=== PATIENT | female | born 1990 ===

== ENCOUNTER 2020-02-05 08:27 | Outpatient (CLI) | payer OTHER ==
[2020-02-06 14:05] LABS: SARS-CoV-2 MS2 Positive; SARS-CoV-2 N Gene Negative; SARS-CoV-2 S Gene Negative; SARS-CoV-2 by NAA Not Detected (NotDetected); SARS-CoV-2 orf1ab Negative
== END 2020-02-05 08:28 | disposition home or self-care (01) ==
LOC: LABSCS 08:27
PROVIDERS: ATTEND Obstetrics & Gynecology
DX: Z20.828 Contact with and (suspected) exposure to other viral communicable diseases (principal)
CPT/HCPCS: 87635; U0003

== ENCOUNTER 2020-02-08 05:51 | Inpatient (IN) | payer OTHER ==
[2020-02-08] MEDS ORDERED: CEFAZOLIN 2 GM in Premix Bag 1 BAG IVPB SCH (06:12)
[2020-02-08] MEDS ORDERED: Ondansetron PF 4 MG/2 ML Vial IVP PRN ×2 (06:12→08:37)
[2020-02-08] MEDS ORDERED: Bicitra 30 ML UDCUP PO SCH (06:12)
[2020-02-08] MEDS ORDERED: hydrALAZINE 20 MG/ML VIAL SLOW IVP PRN ×2 (06:12→08:28)
[2020-02-08] MEDS ORDERED: Promethazine HCl 25 MG/ML VIAL IM PRN ×2 (06:12→08:37)
[2020-02-08 06:21] VITALS: BMI 35.7
[2020-02-08 06:33] LABS: Hemoglobin 11.7 g/dL (12.0-16.0); Mean Corpuscular HGB CONC 33.7 g/dL (32.0-36.0); Mean Corpuscular Hemoglobin 30.6 pg (27.0-31.0); Mean Corpuscular Volume 90.7 fL (78.0-98.0); Mean Platelet Volume 10.2 fL (7.4-10.4); Platelet Count 148 thou/uL (130-400); RBC Distribution Width 15.7 % (11.5-14.5); Red Blood Cell (RBC) Count 3.81 mill/uL (4.20-5.40); White Blood Cell (WBC) Count 8.3 thou/uL (4.8-10.8)
[2020-02-08] MEDS ORDERED: Fentanyl 100 MCG/2 ML VIAL ONE (07:11)
[2020-02-08] MEDS ORDERED: MORPHINE 5 MG/10 ML PF VIAL ONE (07:11)
[2020-02-08 07:12] LABS: Syphilis Antibody Nonreactive (Nonreactive); Syphilis Antibody Index 0.04 S/CO (<1.00 Non-Reactive)
[2020-02-08] MEDS ORDERED: Ketorolac Tromethamine 30 MG/ML VIAL ONE (07:12)
[2020-02-08] MEDS ORDERED: EPHEDRINE 25 MG/5 ML SYRINGE ONE (07:12)
[2020-02-08] MEDS ORDERED: Dexamethasone 4 mg/ml Vial ONE (07:12)
[2020-02-08] MEDS ORDERED: PHENYLEPHRINE-NS 100 MCG/ML 10 ML SYRINGE ONE (07:12)
[2020-02-08] MEDS ORDERED: Ondansetron PF 4 MG/2 ML Vial ONE (07:12)
[2020-02-08] MEDS ORDERED: Oxytocin 10 UNITS/ML VIAL ONE ×3 (07:12→07:13)
--- NOTE | 2020-02-08 08:27 | PDOC.OPDEL ---
OB Operative/Delivery Note Delivery Dr/Surgeon: Javed Assist: Luca Pre-Delivery Diagnosis: scheduled section Procedure/Post Delivery Dx: repeat low transverse CS Weeks gestation: 39 Anesthesia: spinal - Findings A Sex: female Weight: 7 lb 14 oz - 1 min: 8 - 5 min: 9 - Additional Findings/Plan Placenta delivered: manual removal findings: low transverse hysterotomy without extension Estimated blood loss: 1000ml
[2020-02-08] MEDS ORDERED: Acetaminophen 325 MG TAB PO PRN (08:28)
[2020-02-08] MEDS ORDERED: Simethicone Chewable 80 MG TAB PO PRN (08:28)
[2020-02-08] MEDS ORDERED: diphenhydrAMINE 25 MG CAP PO PRN (08:28)
[2020-02-08] MEDS ORDERED: Lanolin Ointment 7 GM TUBE TOP PRN (08:28)
[2020-02-08] MEDS ORDERED: Ketorolac Tromethamine 30 MG/ML VIAL IVP PRN (08:37)
[2020-02-08] MEDS ORDERED: Naloxone HCl 0.4 mg/ml Vial IVP PRN ×2 (08:37)
[2020-02-08] MEDS ORDERED: Naloxone HCl 0.4 mg/ml Vial IV PRN (08:37)
[2020-02-08] MEDS ORDERED: Ondansetron HCl/PF 4 MG/2 ML Vial IVP PRN (08:37)
[2020-02-08] MEDS ORDERED: Promethazine HCl 25 MG SUPP PR PRN (08:37)
[2020-02-08] MEDS ORDERED: diphenhydrAMINE 50 MG/ML VIAL IVP PRN (08:37)
[2020-02-08] MEDS ORDERED: L&D-Morphine 4 MG/ML VIAL SLOW IVP PRN (08:37)
[2020-02-08] MEDS ORDERED: HYDROmorphone 2 MG/ML VIAL SLOW IVP PRN (08:37)
[2020-02-08] MEDS: Lactated Ringer's 1,000 ML IV SCH (08:42)
[2020-02-08] MEDS ORDERED: Communication Order-Pharmacy FS SCH (08:45)
[2020-02-08] MEDS ORDERED: Meperidine HCl/PF 25 MG/ML VIAL ONE ×2 (09:48→10:11)
[2020-02-08] MEDS: Meperidine HCl/PF 25 MG/ML VIAL SLOW IVP PRN ×2 (09:50→10:16)
[2020-02-08 11:26] LABS: Hep B Surf Ag Non-Reactive S/CO (NonReactive)
--- NOTE | 2020-02-08 11:55 | OP ---
DATE OF PROCEDURE: 02/08/2020 PREOPERATIVE DIAGNOSES: 1. A 29-year-old [place] female, G2, P1, prior section at 39 weeks. 2. Desires repeat section. POSTOPERATIVE DIAGNOSES: 1. A 29-year-old [place] female, G2, P1, prior section at 39 weeks. 2. Desires repeat section. PROCEDURE PERFORMED: Repeat low-transverse section without extension. ASSISTANCE SURGEON: Rj Segovia DO, MS ANESTHESIA: Spinal block. QUANTITATIVE BLOOD LOSS: 560 mL. FINDINGS: 1. Vigorous female , Apgars 8 and 9, 7 pounds and 14 ounces. Vertex presentation. 2. Clear amniotic fluid noted. 3. Some peritoneal adhesion in the upper mid anterior uterine wall, status post adhesiolysis. 4. Clear urine present in Self catheter postprocedure. DISPOSITION: To recovery room, stable. DESCRIPTION OF PROCEDURE: The patient previously received informed consent in regard to surgery. She was taken to the operating room, where she received spinal block without complications. She was then placed in the supine position and Self catheter and SCDs were placed. She was then prepped in usual sterile fashion. A Pfannenstiel incision was made through the previous scar site, which was carried down the fascia. Fascia was nicked in midline. Fascial incision was extended bilaterally using curved Flores scissors. Rectus fascia was then dissected superiorly and inferiorly off the rectus muscle bellies. There was some peritoneal band-like adhesions in the mid upper anterior uterus, which were taken down with Bovie cautery to give us more room and mobility of the uterus. Hysterotomy incision was then made in the lower uterine segment above the vesicouterine peritoneal fold. This extended via finger fractionation. The baby was delivered in the vertex presentation. The mouth and nares of the were bulb suctioned on the abdomen. The cord was doubly clamped and cut and handed to the pediatric team in attendance. The usual cord blood was obtained. The placenta was manually extracted. Hysterotomy incision was grasped with ring forceps and the uterus was externalized. The uterus was curetted of any remaining placental fragments with dry laparotomy sponge. The uterus returned back to the abdomen. The hysterotomy incision was closed in double-layer with #1 Monocryl in running locking fashion. Hemostasis was confirmed. The pelvis was irrigated and suctioned. Again, the hysterotomy was confirmed to be hemostatic. The rectus muscle bellies were inspected and noted to be hemostatic prior to fascial closure. The fascia was closed with 0 PDS suture x2 in a running continuous fashion. Subcutaneous tissue was irrigated and hemostatic prior to approximation with running 3-0 plain gut. The skin was closed with jenae. Surgery was terminated. No anesthetic or surgical complications occurred. Job ID: [id number]
[2020-02-08] MEDS: Docusate Calcium (SURFAK) 240 MG CAP PO SCH ×2 (13:07→21:30)
[2020-02-08] MEDS: Ferrous Sulfate 325 MG TAB PO SCH ×2 (13:08→21:32)
[2020-02-08] MEDS: Prenatal Vitamin 1 TAB PO SCH (13:08)
[2020-02-08] MEDS: Ibuprofen 800 MG TAB PO SCH ×2 (13:12→21:30)
[2020-02-08] MEDS: HYDROcodone/Acetaminophen 5/325 mg Tablet PO PRN (20:25)
[2020-02-08 20:46] LABS: HBSAg Index 0.13 S/CO (0-0.99)
[2020-02-09] MEDS: Lactated Ringer's 1,000 ML IV SCH ×5 (02:00→22:05)
[2020-02-09] MEDS ORDERED: Sodium Chloride 0.9% 10 ML ONE (05:59)
[2020-02-09] MEDS: Ibuprofen 800 MG TAB PO SCH ×3 (06:07→21:16)
[2020-02-09 06:17] LABS: Hemoglobin 8.9 g/dL (12.0-16.0); Mean Corpuscular Hemoglobin 30.1 pg (27.0-31.0); Mean Corpuscular Volume 91.3 fL (78.0-98.0); Mean Platelet Volume 10.1 fL (7.4-10.4); Platelet Count 131 thou/uL (130-400); RBC Distribution Width 15.4 % (11.5-14.5); Red Blood Cell (RBC) Count 2.94 mill/uL (4.20-5.40); White Blood Cell (WBC) Count 10.5 thou/uL (4.8-10.8)
--- NOTE | 2020-02-09 08:09 | PDOC.PP ---
Post Progress Note Post Day #: 1 Subjective: Patient doing well. Would like to go home later today if doing well. Has good help at home. PO intake tolerated: yes Flatus: yes Ambulation: yes Vital Signs (12 hours) Temp Pulse Resp BP Pulse Ox 02/09/20 00:25 98 F 72 16 99/55 L 98 02/08/20 20:10 98.0 F 80 20 116/59 L 98 Weight Weight 202 lb - Physical Examination Abdominal: + bowel sounds, no distention, appropriately TTP Extremities: negative homans (B) Result Diagrams: 02/09/20 05:52 Additional Labs: Post Labs Blood Type A POSITIVE 02/08/20 06:25 Hep Bs Antigen Non-Reactive S/CO (NonReactive) 02/08/20 06:25 - Assessment/Plan post op day 1 from repeat c/s. Hemodynamically stable. Increase activity and advance diet. Anticipate discharge later today if doing well.
[2020-02-09] MEDS ORDERED: Adacel (T-DAP) 0.5 ML SYRINGE IM ONE (08:28)
[2020-02-09] MEDS: HYDROcodone/Acetaminophen 5/325 mg Tablet PO PRN ×4 (08:44→22:26)
[2020-02-09] MEDS: Ferrous Sulfate 325 MG TAB PO SCH ×2 (08:44→21:17)
[2020-02-09] MEDS: Docusate Calcium (SURFAK) 240 MG CAP PO SCH ×2 (08:44→21:17)
[2020-02-09] MEDS: Prenatal Vitamin 1 TAB PO SCH (08:44)
[2020-02-10] MEDS: Ibuprofen 800 MG TAB PO SCH (05:52)
[2020-02-10] MEDS: Lactated Ringer's 1,000 ML IV SCH (05:58)
--- NOTE | 2020-02-10 07:06 | PDOC.PP ---
Post Progress Note Post Day #: 2 PO intake tolerated: yes Flatus: yes Ambulation: yes Vital Signs (12 hours) Temp Pulse Resp BP Pulse Ox 02/10/20 03:39 98.4 F 76 18 102/54 L 99 02/09/20 21:15 98.1 F 75 18 105/53 L 98 Weight Weight 202 lb - Physical Examination Abdominal: + bowel sounds, no distention, appropriately TTP Extremities: negative homans (B) Result Diagrams: 02/09/20 05:52 Additional Labs: Post Labs Blood Type A POSITIVE 02/08/20 06:25 Hep Bs Antigen Non-Reactive S/CO (NonReactive) 02/08/20 06:25 - Assessment/Plan Post op day 2-doing well. discharge home if baby discharges. Josselyn out post op day 7 in office.
[2020-02-10] MEDS: Ferrous Sulfate 325 MG TAB PO SCH (07:41)
[2020-02-10] MEDS: Docusate Calcium (SURFAK) 240 MG CAP PO SCH (07:41)
[2020-02-10] MEDS: Prenatal Vitamin 1 TAB PO SCH (07:41)
[2020-02-10] MEDS: HYDROcodone/Acetaminophen 5/325 mg Tablet PO PRN ×2 (07:41→12:04)
[2020-02-10 12:45] VITALS: BP 116/61; TEMP 98.2
== END 2020-02-10 12:30 | disposition home or self-care (01) | DRG 788 ==
LOC: L&D 05:51 → 3SE 12:47
PROVIDERS: ADMIT Obstetrics & Gynecology; ATTEND Obstetrics & Gynecology
PROC: 10D00Z1 Extraction of Products of Conception, Low, Open Approach (ICD-10-PCS; principal; 2020-02-08)
DX: O34.211 Maternal care for low transverse scar from previous cesarean delivery (principal); O99.62 Diseases of the digestive system complicating childbirth; K66.0 Peritoneal adhesions (postprocedural) (postinfection); Z3A.39 39 weeks gestation of pregnancy; Z37.0 Single live birth
CPT/HCPCS: 36415; 51702; 85027; 86780; 86850; 86900; 86901; 87340; J1100; J1170; J1885; J2175; J2274; J2405; J2590; J3010